=== PATIENT | female | born 1975 ===

== ENCOUNTER → 2016-09-02 | Outpatient (CLI) | payer BC ==
--- NOTE | 2016-09-02 13:46 | RAD ---
Exam: PA and lateral chest radiograph History: Chest pain, slight cough for 4-5 days. Comparison: None. Findings: Cardiomediastinal silhouette is within normal limits for size. Bilateral lung baxter are free of focal infiltrate. No pleural effusion is seen. Impression: No acute cardiopulmonary process.
== END | disposition home or self-care (01) ==
LOC: DXRADRC 10:39
PROVIDERS: ATTEND Nurse Practitioner Family
DX: R07.9 Chest pain, unspecified (principal); R05 Cough
CPT/HCPCS: 71020